=== PATIENT | female | born 1955 | race Caucasian/White ===

== ENCOUNTER 2016-11-14 09:42 | Outpatient (CLI) | payer OTHER ==
[2016-11-14 11:05] LABS: #Eosinphils 0.1 thou/uL (0.0-0.7); #Lymphocytes 1.8 thou/uL (1.20-3.40); #Monocytes 0.6 thou/uL (0.11-0.59); #Neutrophils 4.7 thou/uL (1.40-6.50); %Basophils 0.6 % (0.0-1.0); %Lymphocytes 24.3 % (21.0-51.0); %Monocytes 7.6 % (0.0-10.0); %Neutrophils 65.5 % (42.0-75.0); Hemoglobin 14.6 g/dL (12.0-16.0); Mean Corpuscular HGB CONC 32.9 g/dL (32.0-36.0); Mean Corpuscular Hemoglobin 30.4 pg (27.0-31.0); Mean Corpuscular Volume 92.2 fl (81.0-99.0); Mean Platelet Volume 5.9 fL (7.4-10.4); Platelet Count 216 thou/uL (130-400); RBC Distribution Width 13.1 % (11.5-14.5); White Blood Cell (WBC) Count 7.2 thou/uL (4.8-10.8)
[2016-11-14 15:53] LABS: ALT (SGPT) 23 U/L (8-55); AST (SGOT) 17 U/L (5-34); Albumin 4.3 g/dL (3.4-4.8); Alkaline Phosphatase 84 U/L (40-150); Anion Gap 17 mmol/L (10-20); BUN (Urea Nitrogen) 20 mg/dL (9.8-20.1); Bilirubin, Total 0.8 mg/dL (0.2-1.2); Calc. Creatinine Clearance 0 mL/min (70-130); Calcium 9.6 mg/dL (7.8-10.44); Carbon Dioxide 25 mmol/L (23-31); Cardiac Risk 2.5 (Less than 4.5); Chloride 106 mmol/L (98-107); Cholesterol 127 mg/dl (< 200 Desired); Estimated GFR-MDRD 68; Globulin 2.6 g/dL (2.4-3.5); Glucose 165 mg/dL (80-115); HDL Cholesterol 50 mg/dL (>60 Neg Risk); Hemoglobin A1c 7.2 % (4.0-6.0); LDL Cholesterol, Calculated 62 mg/dL; Protein, Total 6.9 g/dL (6.0-8.3); Sodium 143 mmol/L (136-145); Triglycerides 73 mg/dL (Less than 150)
== END 2016-11-14 09:43 | disposition home or self-care (01) ==
LOC: HPCALD 09:42
PROVIDERS: ATTEND Family Medicine
DX: E78.5 Hyperlipidemia, unspecified (principal); E11.9 Type 2 diabetes mellitus without complications; I10 Essential (primary) hypertension
CPT/HCPCS: 36415; 80053; 80061; 83036; 85025

== ENCOUNTER 2018-02-14 10:31 | Outpatient (CLI) | payer OTHER ==
--- NOTE | 2018-02-14 17:27 | RAD ---
RIGHT KNEE FOUR VIEWS: 02/14/18 Severe osteoarthritis is present consisting of mainly lateral joint space narrowing and large osteoph ytes. The articular surfaces are irregular, particularly along the contact points of the lateral comp artment. The patellofemoral joint is markedly involved. No joint effusions were seen. A bony projecti on is seen from the distal femur anteriorly which I believe is more likely a large osteophyte than an osteochondroma. At any rate, ortho referral would probably be in order. IMPRESSION: Severe arthritic changes. Mainly lateral compartment. See above. POS: HOME
== END 2018-02-14 10:32 | disposition home or self-care (01) ==
LOC: BURRAD 10:31
PROVIDERS: ATTEND Family Medicine
DX: M25.561 Pain in right knee (principal); M17.11 Unilateral primary osteoarthritis, right knee

== ENCOUNTER 2019-03-13 11:18 | Outpatient (CLI) | payer MEDICARE ==
--- NOTE | 2019-03-13 18:15 | RAD ---
CHEST TWO VIEWS: 03/13/19 The heart is normal in size and the lungs are clear. Faint calcification is seen in the aortic arch. Degenerative changes are present in the mid to lower thoracic spine. IMPRESSION: Mild arteriosclerotic change but no acute findings. POS: HOME
== END 2019-03-13 11:19 | disposition home or self-care (01) ==
LOC: BUREKG 11:18 → EEVIPCON 11:18 → BUREKG 11:19
PROVIDERS: ATTEND Family Medicine
DX: Z01.818 Encounter for other preprocedural examination (principal); I70.90 Unspecified atherosclerosis
CPT/HCPCS: 71046

== ENCOUNTER 2019-03-16 15:34 | Emergency (ER) | payer MEDICARE ==
[2019-03-16 16:04] LABS: Bilirubin Moderate (Negative); Blood, Urine Negative (Negative); Clarity Clear (Clear); Glucose, Urine (Dipstick) Negative (Negative); Leukocyte Small (Negative); Nitrite Negative (Negative); Protein, Urine (Dipstick) Negative (Neg-Trace); Urobilinogen 0.2 mg/dL (Less than 2)
[2019-03-16 16:07] LABS: Bacteria/HPF None Seen HPF (None Seen); RBC/HPF None Seen HPF (0-3); Squamous Epithelial 0-3 HPF (0-3)
[2019-03-16] MEDS ORDERED: Sulfameth/Trimethoprim DS 800-160mg TAB ONE (16:17)
== END 2019-03-16 16:30 | disposition home or self-care (01) ==
LOC: BURERS 15:34
DX: N39.0 Urinary tract infection, site not specified (principal); E11.9 Type 2 diabetes mellitus without complications; I10 Essential (primary) hypertension; Z79.899 Other long term (current) drug therapy; Z79.84 Long term (current) use of oral hypoglycemic drugs
CPT/HCPCS: 81003; 81015; 87086; 99284

== ENCOUNTER 2019-03-21 21:03 | Emergency (ER) | payer MEDICARE ==
--- NOTE | 2019-03-21 22:21 | CT ---
CT ABDOMEN AND PELVIS WITH CONTRAST: 03/21/[address] of the abdomen and pelvis was performed for evaluation of abdominal pain and constipation. Axial slices were acquired after a bolus of IV contrast. The amount was reduced given a slightly low GFR in the recent past. Sagittal and coronal reconstructions were then done. The lung bases are clear. There is a somewhat unusual density in the left lower lobe posterolaterally . As best as I can tell, it appears more like a tangle of vessels than an actual mass. I feel its cur rent significance is most likely low. The liver and spleen were unremarkable, as was the gallbladder. There are some granulomas in the sple en. The pancreas is atrophic. The kidneys and adrenal glands were unremarkable. The aorta showed some arterial sclerotic change but no aneurysm. All mesenteric vessels from the aorta fill. The bowel shows no distention to suggest obstruction. There is a moderate increase in fecal material throughout the colon. A few scattered diverticula were present without evidence of diverticulitis. Th e appendix appears normal. No free air or free fluid was seen. CT of the pelvis showed no pelvic masses, fluid collections, or inflammatory changes. An IUD was note d in the uterus, unusual in the age group. IMPRESSION: 1. Mild constipation. No acute abdominal or pelvic findings otherwise. 2. IUD noted in the uterus. 1. POS: HOME
[2019-03-22 09:09] LABS: ALT (SGPT) 35 U/L (8-55); AST (SGOT) 29 U/L (5-34); Alkaline Phosphatase 64 U/L (40-150); Anion Gap 19 mmol/L (10-20); BUN (Urea Nitrogen) 51 mg/dL (9.8-20.1); Bilirubin, Total 0.5 mg/dL (0.2-1.2); Calc. Creatinine Clearance 0 mL/min (70-130); Calcium 10.3 mg/dL (7.8-10.44); Carbon Dioxide 17 mmol/L (23-31); Chloride 105 mmol/L (98-107); Estimated GFR-MDRD 37; Globulin 2.5 g/dL (2.4-3.5); Glucose 90 mg/dL (80-115); Potassium 5.9 mmol/L (3.5-5.1); Protein, Total 6.5 g/dL (6.0-8.3); Sodium 135 mmol/L (136-145)
[2019-03-22 09:21] LABS: #Eosinphils 0.1 thou/uL (0.0-0.7); #Monocytes 0.5 thou/uL (0.11-0.59); #Neutrophils 3.4 thou/uL (1.40-6.50); %Basophils 0.9 % (0.0-1.0); %Eosinophils 1.1 % (0.0-10.0); %Monocytes 9.5 % (0.0-10.0); %Neutrophils 68.5 % (42.0-75.0); Hemoglobin 11.9 g/dL (12.0-16.0); Mean Corpuscular HGB CONC 32.5 g/dL (32.0-36.0); Mean Corpuscular Hemoglobin 30.5 pg (27.0-31.0); Mean Corpuscular Volume 93.8 fL (78.0-98.0); Mean Platelet Volume 6.5 fL (7.4-10.4); Platelet Count 160 thou/uL (130-400); White Blood Cell (WBC) Count 4.9 thou/uL (4.8-10.8)
== END 2019-03-21 22:30 | disposition home or self-care (01) ==
LOC: BURERS 21:03
DX: K59.00 Constipation, unspecified (principal); E11.9 Type 2 diabetes mellitus without complications; I10 Essential (primary) hypertension; Z85.828 Personal history of other malignant neoplasm of skin; Z79.899 Other long term (current) drug therapy; Z79.84 Long term (current) use of oral hypoglycemic drugs
CPT/HCPCS: 74177; 80053; 83605; 85025

== ENCOUNTER 2019-09-10 09:36 | Outpatient (CLI) | payer MEDICARE ==
--- NOTE | 2019-09-10 10:54 | RAD ---
EXAM: Chest PA and lateral: HISTORY: Preoperative exam. COMPARISON: 03/13/2019 FINDINGS: Heart: Normal cardiac silhouette Aorta: Atherosclerosis of the aorta. Pulmonary vessels: Normal Costophrenic angles: Costophrenic angles are clear. Lungs: No consolidation or masses. Pneumothorax: No pneumothorax Osseous structures: No osseous abnormalities IMPRESSION: No acute cardiopulmonary process. Atherosclerosis.
== END 2019-09-10 09:37 | disposition home or self-care (01) ==
LOC: BUREKG 09:36
PROVIDERS: ATTEND Family Medicine
DX: Z01.818 Encounter for other preprocedural examination (principal); I70.0 Atherosclerosis of aorta
CPT/HCPCS: 71046; 93005; 93010

== ENCOUNTER 2020-01-24 11:03 | Emergency (ER) | payer MEDICARE | END 2020-01-24 12:37 | disposition short-term general hospital (02) | LOC: BURERS 11:03 | DX: M96.89 Other intraoperative and postprocedural complications and disorders of the musculoskeletal system (principal); M25.461 Effusion, right knee; R79.1 Abnormal coagulation profile; E11.9 Type 2 diabetes mellitus without complications; I10 Essential (primary) hypertension; Z79.84 Long term (current) use of oral hypoglycemic drugs; Z79.899 Other long term (current) drug therapy | CPT/HCPCS: 36415; 85379; 99284 ==